=== PATIENT | female | born 1970 | race Caucasian/White ===

== ENCOUNTER 2022-07-20 06:15 | Day surgery (SDC) | payer MEDICARE, MEDICAID, SELFPAY ==
[2022-07-20 06:20] VITALS: BP 137/71; PULSE 71; RESP 18; TEMP 36.8; O2SAT 97
[2022-07-20] MEDS: Tropicam./Phenyleph. (1/2.5%) 5 ML BTL OD ×3 (06:42→06:53)
--- NOTE | 2022-07-20 07:00 | W.ANESPRE ---
General Info Date of Service Date Performed: 07/20/22 Height: 5 ft 4 in Weight: 69 kg Body Mass Index (BMI): 26.1 Surgical Procedure: Operation Date: 07/20/22 07:40 Proposed Procedure Side Surgeon p Cataract Extraction with IOL Implant Right Levi Kang MD Meds Allergies and Home Medications Allergies Allergy/AdvReac Type Severity Reaction Status Date / Time codeine Allergy Itching Unverified 07/20/22 06:28 Penicillins Allergy Itching Unverified 07/20/22 06:28 Home Medication Medication Instructions Recorded Cymbalta 60 mg capsule,delayed 60 mg PO BID 11/25/15 release (duloxetine) Flovent Diskus 50 mcg/actuation 50 mcg inhalation 11/25/15 powder for inhalation (fluticasone propionate) Lantus U-100 Insulin 100 unit/mL 47 u subcut HS 11/25/15 subcutaneous solution (insulin glargine) Vitamin D3 Complete 18 mg iron-800 1 ea PO 11/25/15 mcg-150 mg tablet ([id number]-dh-xpcv-FA-herbal cmplx#[id number]) atorvastatin 40 mg tablet 20 mg PO DAILY 11/25/15 famotidine 40 mg tablet 40 mg PO DAILY 11/25/15 clonidine HCl 0.3 mg tablet 0.3 mg PO QHS 07/18/22 cyclobenzaprine 5 mg tablet 5 mg PO QHS PRN 07/18/22 estradiol 0.01% (0.1 mg/gram) 1 g vaginal QWEEK 07/18/22 vaginal cream lamotrigine 200 mg tablet 200 mg PO HS 07/18/22 losartan 25 mg tablet 25 mg PO HS 07/18/22 semaglutide 0.25 mg or 0.5 mg (2 0.5 mg subcut QWEEK 07/18/22 mg/1.5 mL) subcutaneous pen injector (Ozempic) insulin glargine 100 unit/mL (3 47 unit subcut QAM 07/20/22 mL) subcutaneous pen (Basaglar KwikPen U-100 Insulin) Current Visit Medications: Current Medications Generic Name Dose Route Start Last Admin Trade Name Freq PRN Reason Stop Dose Admin Acetaminophen 1,000 mg 07/20/22 06:00 Acetaminophen 500 Mg Tab PO Q4H PRN PRN Miscellaneous Medication 0 ml 07/20/22 06:00 Prednisolone 1%, Moxifloxacin 0.5%, Nepafenac 0.1% 5ml Btl OD DIRECTED GAIL Miscellaneous Medication 0 ml 07/20/22 06:00 07/20/22 06:53 Tropicam./Phenyleph. (1/2.5%) 5 Ml Btl OD 1 drp DIRECTED GAIL Administration Tetracaine HCl 0 ml 07/20/22 06:00 Tetracaine 0.5% 4 Ml Btl OD DIRECTED GAIL PFSH Active Problems Active Problems: Problem Status Onset Code Posterior subcapsular age-related cataract, right eye H25.041 Cortical cataract of right eye H26.9 Nuclear sclerotic cataract of right eye H25.11 Medical History Medical History Hx of type 2 diabetes mellitus recent A1C 8.3% Hypertension Surgical History Surgical History Hx of tubal ligation Tobacco Smoking/Tobacco Use Status: Never Alcohol Alcohol Intake: never Substance Use Substance use type: does not use Vital Signs and Lab Results Vital Signs Most Recent Vital Signs in EMR: Most Recent Vital Signs Temp Pulse Resp BP Pulse Ox 36.8 C 71 18 137/71 97 07/20/22 06:20 07/20/22 06:20 07/20/22 06:20 07/20/22 06:20 07/20/22 06:20 Point of Care Results Point of Care Results: Finger Stick Blood Glucose 178 07/20/22 06:54 Lab Results Blood Type / Crossmatch: No Data to Display Complete Blood Count: No Data to Display Complete Metabolic Panel: No Data to Display Liver Function Panel: No Data to Display Coagulation Panel: No Data to Display Cardiac Panel: No Data to Display Arterial Blood Gas: No Data to Display Venous Blood Gas: No Data to Display Pancreas Panel: No Data to Display Thyroid Panel: No Data to Display Infectious Disease: No Data to Display Blood Cultures: No Data to Display Toxicology Panel: No Data to Display Panel: No Data to Display Anesthesia Assessment and Plan Anesthesia History Personal History: No History of Anesthesia Complications Family History: No Family History of Anesthesia Complications Exercise Tolerance Exercise Tolerance: Metabolic Equivalents<4 Pertinent Negatives Pertinent Negatives: No Symptoms of GERD Cardiac & Pulmonary Exam Cardiac Exam: Normal S1/S2 Heart Sounds Pulmonary Exam: Clear Bilateral Breath Sounds Implantable Cardiac Device Does patient have a Pacemaker or an ICD?: No Airway Exam Known Difficult Airway: No Mallampati Class: 2 Mouth Opening: Normal (> 3cm) Thyromental Distance: Greater than 3 cm Neck Range of Motion: Full ROM Neck Circumference: Normal Teeth Condition: Normal Dentition ASA Classification ASA Score: ASA 2 Emergency Case?: No NPO Status NPO Status: NPO Clears >2 hours, Solids >8 hours Status Status: Not Relevant due to Medical History Anesthesia Plan Resuscitation Status: Full Code Anesthesia Technique: MAC Anesthesia Airway Planned: Natural Airway Monitors Used: Standard Monitors
[2022-07-20 07:06] VITALS: BMI 26.1
[2022-07-20] MEDS: Povidone-Iodine Ophth 30 ML BTL (07:28)
[2022-07-20] MEDS: Tetracaine 0.5% 4 ML BTL OD (07:28)
[2022-07-20] MEDS: Lidocaine 2% Jelly 6 ML SYR (07:29)
[2022-07-20] MEDS: Balanced Salt Soln.-PLUS 500 ML BAG (07:37)
[2022-07-20] MEDS: Duovisc Viscoelastic System EACH 1 EACH (07:37)
[2022-07-20] MEDS: Trypan Blue 0.06% 0.5 ML SYR (07:45)
--- NOTE | 2022-07-20 08:02 | W.PM.DSUDISC ---
Discharge Plan Disposition Patient Disposition: HOME Condition: Good Discharge Details Attending Provider: Levi Kang Primary Care Provider: Aden Alfonso Home Meds and New Rx's Prescriptions: No Action atorvastatin 40 MG tablet 20 mg PO DAILY Flovent Diskus 50 MCG blister with device 50 mcg Inhalation insulin glargine [Lantus U-100 Insulin] 100 UNIT/1 ML solution 47 u Sub-Q HS famotidine 40 MG tablet 40 mg PO DAILY duloxetine [Cymbalta] 60 MG capsule,delayed release(DR/EC) 60 mg PO BID Vitamin D3 Complete 1 EACH tablet 1 ea PO lamotrigine 200 mg Tablet 200 mg PO HS clonidine HCl 0.3 mg Tablet 0.3 mg PO QHS losartan 25 mg Tablet 25 mg PO HS estradiol 0.01 % (0.1 mg/gram) Cream 1 g VAGINAL QWEEK Rx Instructions: 1-3 times weekly for vaginitis cyclobenzaprine 5 mg Tablet 5 mg PO QHS PRN Rx Instructions: 0.5-2 tablet at bedtime as needed Ozempic 0.25 mg or 0.5 mg(2 mg/1.5 mL) Pen Injector 0.5 mg SUBCUT QWEEK insulin glargine [Basaglar KwikPen U-100 Insulin] 100 unit/mL (3 mL) Insulin Pen 47 unit SUBCUT QAM Discharge Instructions Stand Alone Forms: Post-op Topical Cataract, Press Ganey (DSU) Discharge Orders Discharge Orders: Discharge Order (Routine); Ordered 07/20/22 Ordered By: Levi Kang DS: Diagnosis Discharge Diagnosis (1) Posterior subcapsular age-related cataract, right eye: Status: Resolved (2) Cortical cataract of right eye: Status: Resolved (3) Nuclear sclerotic cataract of right eye: Status: Resolved
[2022-07-20 08:03] VITALS: BP 137/79; PULSE 72; RESP 16; TEMP 36.4; O2SAT 96
--- NOTE | 2022-07-20 08:03 | ROE_ITS ---
Date of service: 07/20/22 Time of Service: 08:03 Operative Note Operative Note DATE OF PROCEDURE: 07/20/22 POST-OP DIAGNOSIS: same Nuclear/cortical/posterior subcapsular cataract, right eye PROCEDURE: Cataract extraction using phacoemulsification with intraocular lens implantation, right eye, using capsular staining with Vision Blue SURGEON: Levi Kang ANESTHESIA TYPE: Local By Surgeon and MAC Refer to Anesthesia Record PATHOLOGY: none sent COMPLICATIONS: None Patient was transported to: same day Patient's condition: stable Implants: Eugenio and Eugenio / [employer] Tecnis [id number] Indications: Progressive visual loss due to cataract, right eye Procedure Description: CATARACT SURGERY OPERATIVE REPORT PREOPERATIVE DIAGNOSIS: 1. Nuclear/cortical/posterior subcapsular cataract, right eye 2. Poor red reflex secondary to #1 POSTOPERATIVE DIAGNOSIS: Same OPERATION: 1. Cataract extraction using phacoemulsification with posterior chamber intraocular lens implant, right eye. 2. Capsular staining with Vision Blue IOL: IOL Sampler Radioactive Waste/Model: Eugenio & Eugenio / JAYDE Tecnis [id number] IOL Power: + 20.0 diopters IOL Serial Number: [id number] Optic Diameter: 6.0mm Haptic/Overall Diameter: 13.0mm PHACO INFO: Adán [employer]urion Vision System with OZil and Active Fluidics Cumulative Dispersed Energy (CDE): 18.82 seconds SURGEON: Levi Kang MD, SUSAN ANESTHESIA: Monitored Anesthesia Care (MAC), with local sub-tenon's anesthetic infiltration COMPLICATIONS: None SPECIMENS: None INDICATIONS FOR PROCEDURE: The patient is a 52-year-old lady with history of diminished visual acuity in her right eye secondary to the development of significant n uclear/cortical/posterior subcapsular cataract. Visual acuity measures 2400 in the presence of the significant cataract. The option of cataract surgery was offered to the patient and she wished to proceed. PROCEDURE: The correct surgical eye was identified and marked as the right eye and the pupil was dilated in the preoperative area using mydriatics and cycloplegics. The dilated pupil size was 8.0 mm. Oral sedation was administered in the form of an Imprimis MKO Melt (midazolam 3mg/ketamine 25mg/ondansetron 2mg). The patient was brought to the operating room where cardiopulmonary monitoring was instituted and surgical time-out was performed, confirming the correct operative eye and IOL power. Topical anesthesia was administered and ophthalmic povidone-iodine 5% was instilled into the conjunctival fornices. Lidocaine gel was applied to the cornea and the carey-ocular area was prepped with Betadine 10% solution and draped in the usual sterile fashion for intraocular surgery, including an aperture drape. A Tegaderm transparent film dressing was cut in half and used to cover the lashes and lid margins. Care was taken to sequester the lashes and lid margins under the Tegaderm dressing. A lid speculum was placed between the lids of the operative eye and the Adán [employer] Rev[employer] operating microscope was maneuvered into position. Nallely scissors were then used to make a conjunctival buttonhole approximately 6mm posterior to the limbus in the inferonasal quadrant. Blunt dissection was carried out to expose bare sclera, and a blunt-tipped sub-tenon?s anesthesia cannula was introduced and passed posteriorly along the globe where non- preserved plain lidocaine was injected into posterior sub-Tenon?s space. A sideport knife was used to make a paracentesis port inferotemporally. Intraocular phenylephrine/lidocaine was injected into the anterior chamber. Air was injected into the anterior chamber, followed by Vision Blue, which was painted over the anterior capsule and then irrigated out with BSS. The anterior chamber was filled with viscoelastic. A keratome knife was used to create a 2- plane near clear corneal tunnel extending approximately 2 mm into clear cornea superior temporally.. A flap was raised on the anterior capsule and capsulorhexis forceps were used to complete a continuous curvilinear capsulorhexis of 5.0 mm. Balanced salt solution was then used to perform cortical cleaving hydrodissection and nuclear hydrodelineation until the lens could be freely rotated within the capsular bag. The lens nucleus was then disassembled and removed within the capsular bag and iris plane using phacoemulsification. Residual cortical material was removed using the I/A handpiece. The posterior capsule was carefully polished to remove as much residual lens epithelial cells as safely possible. The capsular bag was then inflated and the anterior chamber deepened with viscoelastic. The lens implant described above was inserted into the capsular bag using the JAYDE [place] Injector. A Kuglen hook was used to dial the IOL into position. Residual viscoelastic was then removed first from posterior to the IOL, then from the anterior chamber using the I/A handpiece. The lens implant was noted to center nicely within the capsular bag. The incisions were stromally hydrated, and the anterior chamber was reformed using BSS. Then 0.5cc of moxifloxacin 1.0mg/ml were injected into the capsular bag and anterior chamber. The incisions were checked with a Weck spear and found to be secure. Several drops of ophthalmic povidone-iodine 5% were then applied to the eye followed by two drops of Imprimis combination prednisolone/moxifloxacin/nepafenac solution. The drapes were removed and a clear plastic protective eye shield was placed over the eye. The patient was then returned to Same Day Surgery in stable condition.
--- NOTE | 2022-07-20 08:20 | W.ANESPOSTOP ---
Postoperative Evaluation Date, Time and Location Date Performed: 07/20/22 Time Performed: 08:05 Patient Location: Day Surgery Unit Vital Signs Most Recent Imported Vital Signs: Most Recent Vital Signs Temp Pulse Resp BP Pulse Ox 36.4 C L 72 16 137/79 96 07/20/22 08:03 07/20/22 08:03 07/20/22 08:03 07/20/22 08:03 07/20/22 08:03 Pain Score Most Recent Pain Score: Most Recent Pain Score Pain Level 0 07/20/22 08:03 Assessment Mental Status: Awake (Alert & Oriented to Patient Baseline) Airway and Respiratory Function: Patent airway with normal (patient baseline) respiratory exam Cardiovascular Function: Hemodynamically Stable Hydration Status: Adequately Hydrated Nausea & Vomiting: No Nausea or Vomiting Pain: Pt. Denies Any Pain Peripheral Nerve Block: Patient did not receive a nerve block
[2022-07-20 08:26] VITALS: BP 131/79; PULSE 75; RESP 16; TEMP 36.6; O2SAT 96
--- NOTE | 2022-07-20 11:13 | W.PM.OP ---
Date of service: 07/20/22 Time of Service: 08:03 Operative Note Operative Note DATE OF PROCEDURE: 07/20/22 PRE-OP DIAGNOSIS: Nuclear/cortical/posterior subcapsular cataract, right eye Poor red reflex, right eye secondary to cataract POST-OP DIAGNOSIS: same PROCEDURE: Eugenio and Eugenio / [employer] Tecnis [id number] SURGEON: Levi Kang ANESTHESIA TYPE: Local By Surgeon and MAC Refer to Anesthesia Record PATHOLOGY: none sent COMPLICATIONS: None Patient was transported to: same day Patient's condition: stable Implants: Eugenio and Eugenio / [employer] Tecnis Eyhance [id number] Indications: Progressive visual loss due to cataract, right eye Procedure Description: CATARACT SURGERY OPERATIVE REPORT PREOPERATIVE DIAGNOSIS: 1. Nuclear/cortical/posterior subcapsular cataract, right eye 2. Poor red reflex secondary to #1 POSTOPERATIVE DIAGNOSIS: Same OPERATION: 1. Cataract extraction using phacoemulsification with posterior chamber intraocular lens implant, right eye. 2. Capsular staining with Vision Blue IOL: IOL Health Sciences Department Chair/Model: Eugenio & Eugenio / JAYDE Tecnis Eyhance DIB00 IOL Power: + 20.0 diopters IOL Serial Number: [id number] Optic Diameter: 6.0mm Haptic/Overall Diameter: 13.0mm PHACO INFO: Adán [employer] Vision System with OZil and Active Fluidics Cumulative Dispersed Energy (CDE): 18.82 seconds SURGEON: Levi Kang MD, SUSAN ANESTHESIA: Monitored Anesthesia Care (MAC), with local sub-tenon's anesthetic infiltration COMPLICATIONS: None SPECIMENS: None INDICATIONS FOR PROCEDURE: Patient is a 52-year-old lady with history of diminished visual acuity in her right eye secondary to the development of significant nuclear/cortical/posterior subcapsular cataract. The option of cataract surgery was offered to the patient and she wished to proceed. Visual acuity measures 20/400 in the presence of the significant cataract. PROCEDURE: The correct surgical eye was identified and marked as the right eye and the pupil was dilated in the preoperative area using mydriatics and cycloplegics. The dilated pupil size was 8.0 mm. Oral sedation was administered in the form of an Imprimis MKO Melt (midazolam 3mg/ketamine 25mg/ondansetron 2mg). The patient was brought to the operating room where cardiopulmonary monitoring was instituted and surgical time-out was performed, confirming the correct operative eye and IOL power. Topical anesthesia was administered and ophthalmic povidone-iodine 5% was instilled into the conjunctival fornices. Lidocaine gel was applied to the cornea and the carey-ocular area was prepped with Betadine 10% solution and draped in the usual sterile fashion for intraocular surgery, including an aperture drape. A Tegaderm transparent film dressing was cut in half and used to cover the lashes and lid margins. Care was taken to sequester the lashes and lid margins under the Tegaderm dressing. A lid speculum was placed between the lids of the operative eye and the Adán [employer] operating microscope was maneuvered into position. Nallely scissors were then used to make a conjunctival buttonhole approximately 6mm posterior to the limbus in the inferonasal quadrant. Blunt dissection was carried out to expose bare sclera, and a blunt-tipped sub-tenon?s anesthesia cannula was introduced and passed posteriorly along the globe where non-preserved plain lidocaine was injected into posterior sub-Tenon?s space. A sideport knife was used to make a paracentesis port inferotemporally. Intraocular phenylephrine/lidocaine was injected into the anterior chamber. Air was injected into the anterior chamber, followed by Vision Blue, which was painted over the anterior capsule and then irrigated out with BSS. The anterior chamber was filled with viscoelastic. A keratome knife was used to create a 2-plane near clear corneal tunnel extending approximately 2 mm into clear cornea superior temporally.. A flap was raised on the anterior capsule and capsulorhexis forceps were used to complete a continuous curvilinear capsulorhexis of 5.0 mm. Balanced salt solution was then used to perform cortical cleaving hydrodissection and nuclear hydrodelineation until the lens could be freely rotated within the capsular bag. The lens nucleus was then disassembled and removed within the capsular bag and iris plane using phacoemulsification. Residual cortical material was removed using the I/A handpiece. The posterior capsule was carefully polished to remove as much residual lens epithelial cells as safely possible. The capsular bag was then inflated and the anterior chamber deepened with viscoelastic. The lens implant described above was inserted into the capsular bag using the Eugenio [employer] Eugenio simplicity injector. A Kuglen hook was used to dial the IOL into position. Residual viscoelastic was then removed first from posterior to the IOL, then from the anterior chamber using the I/A handpiece. The lens implant was noted to center nicely within the capsular bag. The incisions were stromally hydrated, and the anterior chamber was reformed using BSS. Then 0.5cc of moxifloxacin 1.0mg/ml were injected into the capsular bag and anterior chamber. The incisions were checked with a Weck spear and found to be secure. Several drops of ophthalmic povidone-iodine 5% were then applied to the eye followed by two drops of Imprimis combination prednisolone/moxifloxacin/nepafenac solution. The drapes were removed and a clear plastic protective eye shield was placed over the eye. The patient was then returned to Same Day Surgery in stable condition.
== END 2022-07-20 08:36 | disposition home or self-care (01) ==
LOC: SUR 06:16
PROVIDERS: PCP Family Medicine; Visit Provider Ophthalmology
PROC: (CPT 66982; principal; 2022-07-20 07:30)
DX: H25.041 Posterior subcapsular polar age-related cataract, right eye (principal); H26.8 Other specified cataract; E11.9 Type 2 diabetes mellitus without complications; Z79.4 Long term (current) use of insulin
CPT/HCPCS: 66982; V2632

== ENCOUNTER 2022-08-03 06:34 | Day surgery (SDC) | payer MEDICARE, MEDICAID, SELFPAY ==
[2022-08-03 06:56] VITALS: BP 126/75; PULSE 71; RESP 16; TEMP 36.6; O2SAT 98
[2022-08-03] MEDS: Tropicam./Phenyleph. (1/2.5%) 5 ML BTL OS ×3 (07:02→07:19)
[2022-08-03 07:26] VITALS: BMI 25.9
--- NOTE | 2022-08-03 07:26 | W.ANESPRE ---
General Info Date of Service Date Performed: 08/03/22 Height: 5 ft 4 in Weight: 68.6 kg Body Mass Index (BMI): 25.9 Surgical Procedure: Operation Date: 08/03/22 07:40 Proposed Procedure Side Surgeon p Cataract Extraction with IOL Implant Left Levi Kang MD Pre-Op Diagnosis Post-Op Diagnosis CATARACT RIGHT EYE Meds Allergies and Home Medications Allergies Allergy/AdvReac Type Severity Reaction Status Date / Time codeine Allergy Itching Unverified 07/20/22 06:28 Penicillins Allergy Itching Unverified 07/20/22 06:28 Home Medication Medication Instructions Recorded atorvastatin 40 mg tablet 20 mg PO DAILY 11/25/15 famotidine 40 mg tablet 40 mg PO DAILY 11/25/15 clonidine HCl 0.3 mg tablet 0.3 mg PO QHS 07/18/22 cyclobenzaprine 5 mg tablet 5 mg PO QHS PRN 07/18/22 lamotrigine 200 mg tablet 200 mg PO HS 07/18/22 losartan 25 mg tablet 25 mg PO HS 07/18/22 semaglutide 0.25 mg or 0.5 mg (2 0.5 mg subcut QWEEK 07/18/22 mg/1.5 mL) subcutaneous pen injector (Ozempic) insulin glargine 100 unit/mL (3 47 unit subcut QPM 07/20/22 mL) subcutaneous pen (Basaglar KwikPen U-100 Insulin) Current Visit Medications: Current Medications Generic Name Dose Route Start Last Admin Trade Name Freq PRN Reason Stop Dose Admin Acetaminophen 1,000 mg 08/03/22 06:00 Acetaminophen 500 Mg Tab PO Q4H PRN PRN Miscellaneous Medication 0 ml 08/03/22 06:00 Prednisolone 1%, Moxifloxacin 0.5%, Nepafenac 0.1% 5ml Btl OS DIRECTED GAIL Miscellaneous Medication 0 ml 08/03/22 06:00 08/03/22 07:19 Tropicam./Phenyleph. (1/2.5%) 5 Ml Btl OS 1 drp DIRECTED GIAL Administration Tetracaine HCl 0 ml 08/03/22 06:00 Tetracaine 0.5% 4 Ml Btl OS DIRECTED GAIL PFSH Active Problems Active Problems: Problem Status Onset Code Posterior subcapsular age-related cataract, right eye H25.041 Cortical cataract of right eye H26.9 Nuclear sclerotic cataract of right eye H25.11 Medical History Medical History Hx of type 2 diabetes mellitus recent A1C 8.3% Hypertension Surgical History Surgical History Hx of tubal ligation Tobacco Smoking/Tobacco Use Status: Never Alcohol Alcohol Intake: never Substance Use Substance use: Never Substance use type: does not use Vital Signs and Lab Results Vital Signs Most Recent Vital Signs in EMR: Most Recent Vital Signs Temp Pulse Resp BP Pulse Ox 36.6 C 71 16 126/75 98 08/03/22 06:56 08/03/22 06:56 08/03/22 06:56 08/03/22 06:56 08/03/22 06:56 Point of Care Results Point of Care Results: Finger Stick Blood Glucose 165 08/03/22 06:47 Lab Results Blood Type / Crossmatch: No Data to Display Complete Blood Count: No Data to Display Complete Metabolic Panel: No Data to Display Liver Function Panel: No Data to Display Coagulation Panel: No Data to Display Cardiac Panel: No Data to Display Arterial Blood Gas: No Data to Display Venous Blood Gas: No Data to Display Pancreas Panel: No Data to Display Thyroid Panel: No Data to Display Infectious Disease: No Data to Display Blood Cultures: No Data to Display Toxicology Panel: No Data to Display Panel: No Data to Display Anesthesia Assessment and Plan Anesthesia History Personal History: Delayed Emergence Family History: No Family History of Anesthesia Complications Exercise Tolerance Exercise Tolerance: Metabolic Equivalents<4 Cardiac & Pulmonary Exam Cardiac Exam: Normal S1/S2 Heart Sounds Pulmonary Exam: Clear Bilateral Breath Sounds Implantable Cardiac Device Does patient have a Pacemaker or an ICD?: No Airway Exam Known Difficult Airway: No Mallampati Class: 2 Mouth Opening: Normal (> 3cm) Thyromental Distance: Greater than 3 cm Neck Range of Motion: Full ROM Neck Circumference: Normal Teeth Condition: Normal Dentition ASA Classification ASA Score: ASA 2 Emergency Case?: No NPO Status NPO Status: NPO Clears >2 hours, Solids >8 hours Status Status: Not Relevant due to Medical History Anesthesia Plan Resuscitation Status: Full Code Anesthesia Technique: MAC Anesthesia Airway Planned: Natural Airway Monitors Used: Standard Monitors
[2022-08-03] MEDS: Balanced Salt Soln.-PLUS 500 ML BAG (07:39)
[2022-08-03] MEDS: Lidocaine 2% Jelly 6 ML SYR (07:41)
[2022-08-03] MEDS: Povidone-Iodine Ophth 30 ML BTL (07:41)
[2022-08-03] MEDS: Duovisc Viscoelastic System EACH 1 EACH (07:41)
[2022-08-03] MEDS: Tetracaine 0.5% 4 ML BTL OS (07:42)
[2022-08-03 07:58] VITALS: BP 126/78; PULSE 72; RESP 16; TEMP 36.6; O2SAT 96
--- NOTE | 2022-08-03 07:59 | W.PM.DSUDISC ---
Date of service: 08/03/22 Time of Service: 07:59 Discharge Plan Disposition Patient Disposition: HOME Condition: Good Discharge Details Attending Provider: Levi Kang Primary Care Provider: Aden Alfonso Home Meds and New Rx's Prescriptions: No Action atorvastatin 40 MG tablet 20 mg PO DAILY famotidine 40 MG tablet 40 mg PO DAILY lamotrigine 200 mg Tablet 200 mg PO HS clonidine HCl 0.3 mg Tablet 0.3 mg PO QHS losartan 25 mg Tablet 25 mg PO HS cyclobenzaprine 5 mg Tablet 5 mg PO QHS PRN Rx Instructions: 0.5-2 tablet at bedtime as needed Ozempic 0.25 mg or 0.5 mg(2 mg/1.5 mL) Pen Injector 0.5 mg SUBCUT QWEEK insulin glargine [Basaglar KwikPen U-100 Insulin] 100 unit/mL (3 mL) Insulin Pen 47 unit SUBCUT QPM Discharge Instructions Stand Alone Forms: Post-op Topical Cataract, Press Ganey (DSU) Discharge Orders Discharge Orders: Discharge Order (Routine); Ordered 08/03/22 Ordered By: Levi Kang DS: Diagnosis Discharge Diagnosis (1) Cortical cataract of left eye: Status: Resolved (2) Nuclear sclerotic cataract of left eye: Status: Resolved (3) Posterior subcapsular age-related cataract of left eye: Status: Resolved
--- NOTE | 2022-08-03 08:00 | ROE_ITS ---
Date of service: 08/03/22 Time of Service: 08:00 Operative Note Operative Note DATE OF PROCEDURE: 08/03/22 PRE-OP DIAGNOSIS: Nuclear/cortical/posterior subcapsular cataract, left eye POST-OP DIAGNOSIS: same PROCEDURE: Cataract extraction using phacoemulsification with intraocular lens implant, left eye SURGEON: Levi Kang ANESTHESIA TYPE: Local By Surgeon and MAC Refer to Anesthesia Record PATHOLOGY: none sent COMPLICATIONS: None Patient was transported to: same day Patient's condition: stable Implants: Eugenio [employer] Eug[employer] / [employer] Tecnis Eyhance DIB00 Indications: Progressive decreased vision due to cataract, left eye Procedure Description: CATARACT SURGERY OPERATIVE REPORT PREOPERATIVE DIAGNOSIS: 1. Nuclear/cortical/posterior subcapsular cataract, left eye POSTOPERATIVE DIAGNOSIS: Same OPERATION: 1. Cataract extraction using phacoemulsification with posterior chamber intraocular lens implant, left eye. IOL: IOL Vending Machine Host/Hostess/Model: Eugenio & Eugenio / JAYDE Tecnis Eyhance DIB00 IOL Power: + 20.0 diopters IOL Serial Number: [id number] Optic Diameter: 6.0 mm Haptic/Overall Diameter: 13.0 mm PHACO INFO: Adán Rezdyurion Vision System with OZil and Active Fluidics Cumulative Dispersed Energy (CDE): 8.08 seconds SURGEON: Levi Kang MD, SUSAN ANESTHESIA: Monitored A [facility] (MAC), with local sub-tenon's anesthetic infiltration COMPLICATIONS: None SPECIMENS: None INDICATIONS FOR PROCEDURE: The patient is a 52-year-old lady with history of diminished visual acuity in both eyes secondary to the development of nuclear/cortical/posterior subcapsular cataract in both eyes. She is significantly symptomatic that she desired cataract surgery and attempt to improve and maximize her vision. She has already undergone cataract surgery in the right eye and is doing well po stoperatively. She now presents for cataract surgery in the left eye. PROCEDURE: The correct surgical eye was identified and marked as the left eye and the pupil was dilated in the preoperative area using mydriatics and cycloplegics. The dilated pupil size was 8.0 mm. Oral sedation was administered in the form of an Imprimis MKO Melt (midazolam 3mg/ketamine 25mg/ondansetron 2mg). The patient was brought to the operating room where cardiopulmonary monitoring was instituted and surgical time-out was performed, confirming the correct operative eye and IOL power. Topical anesthesia was administered and ophthalmic povidone-iodine 5% was instilled into the conjunctival fornices. Lidocaine gel was applied to the cornea and the carey-ocular area was prepped with Betadine 10% solution and draped in the usual sterile fashion for intraocular surgery, including an aperture drape. A Tegaderm transparent film dressing was cut in half and used to cover the lashes and lid margins. Care was taken to sequester the lashes and lid margins under the Tegaderm dressing. A lid speculum was placed between the lids of the operative eye and the Adán Lux[employer] Revalia operating microscope was maneuvered into position. Nallely scissors were then used to make a conjunctival buttonhole approximately 6mm posterior to the limbus in the inferonasal quadrant. Blunt dissection was carried out to expose bare sclera, and a blunt-tipped sub-tenon?s anesthesia cannula was introduced and passed posteriorly along the globe where non- preserved plain lidocaine was injected into posterior sub-Tenon?s space. A sideport knife was used to make a paracentesis port superiorly/superiortemporally. Intraocular phenylephrine/lidocaine was injected int the anterior chamber.. The anterior chamber was filled with viscoelastic. A keratome knife was used to construct a 2-plane near-clear corneal tunnel extending 2.0mm into clear cornea temporally. A flap was raised on the anterior capsule and capsulorhexis forceps were used to complete a continuous curvilinear capsulorhexis of 5.5 mm. Balanced salt solution was then used to perform cortical cleaving hydrodissection and nuclear hydrodelineation until the lens could be freely rotated within the capsular bag. The lens nucleus was then disassembled and removed within the capsular bag and iris plane using phacoemulsification. Residual cortical material was removed using the 45-degree angled silicone I/A tip with 0.3mm port. The posterior capsule was carefully polished to remove as much residual lens epithelial cells as safely possible. The capsular bag was then inflated and the anterior chamber deepened with viscoelastic. The lens implant described above was inserted into the capsular bag using the Simplicity pre-loaded Injector. A Kuglen hook was used to dial the IOL into position. Residual viscoelastic was then removed first from posterior to the IOL, then from the anterior chamber using the I/A handpiece. The lens implant was noted to center nicely within the capsular bag. The incisions were stromally hydrated, and the anterior chamber was reformed using BSS. Then 0.5cc of moxifloxacin 1.0mg/ml were injected into the capsular bag and anterior chamber. The incisions were checked with a Weck spear and found to be secure. Several drops of ophthalmic povidone-iodine 5% were then applied to the eye followed by two drops of Imprimis combination prednisolone/moxifloxacin/nepafenac solution. The drapes were removed and a clear plastic protective eye shield was placed over the eye. The patient was then returned to Same Day Surgery in stable condition.
--- NOTE | 2022-08-03 08:24 | W.ANESPOSTOP ---
Postoperative Evaluation Date, Time and Location Date Performed: 08/03/22 Time Performed: 08:10 Patient Location: Day Surgery Unit Vital Signs Most Recent Imported Vital Signs: Most Recent Vital Signs Temp Pulse Resp BP Pulse Ox 36.6 C 72 16 126/78 96 08/03/22 07:58 08/03/22 07:58 08/03/22 07:58 08/03/22 07:58 08/03/22 07:58 Pain Score Most Recent Pain Score: Most Recent Pain Score Pain Level 0 08/03/22 07:58 Assessment Mental Status: Awake (Alert & Oriented to Patient Baseline) Airway and Respiratory Function: Patent airway with normal (patient baseline) respiratory exam Cardiovascular Function: Hemodynamically Stable Hydration Status: Adequately Hydrated Nausea & Vomiting: No Nausea or Vomiting Pain: Pt. Denies Any Pain Peripheral Nerve Block: Patient did not receive a nerve block
[2022-08-03 08:30] VITALS: BP 112/72; PULSE 71; RESP 16; TEMP 36.6; O2SAT 97
== END 2022-08-03 08:40 | disposition home or self-care (01) ==
LOC: SUR 06:35
PROVIDERS: PCP Family Medicine; Visit Provider Ophthalmology
PROC: (CPT 66984; principal; 2022-08-03 07:30)
DX: H25.042 Posterior subcapsular polar age-related cataract, left eye (principal); E11.9 Type 2 diabetes mellitus without complications; I10 Essential (primary) hypertension; Z79.4 Long term (current) use of insulin
CPT/HCPCS: 66984; V2632